=== PATIENT | male | born 1950 | race Caucasian/White ===

== ENCOUNTER → 2019-03-14 | Outpatient (CLI) | payer MEDICARE, OTHER ==
[~2019-03-14] MED LIST: ACET65TA OR; ASPI81TA83 OR; COUM1TAB17 OR; CYMB1CAP4 OR; GLUC500T3 OR; HYDR25TA6 OR; LOSARTAN PO; LOVAZA PO; MULTIVIT PO; OMEP20TA7 OR; PERC5TAB8 OR; PERC7.5T8 OR; VITACAP31 PO
[2019-03-14 15:26] LABS: BLOOD UREA NITROGEN 17 MG/DL (7-18); CALCIUM LEVEL 8.9 MG/DL (8.8-10.2); CARBON DIOXIDE LEVEL 28 MEQ/L (21-32); CHLORIDE LEVEL 102 MEQ/L (98-107); CREATININE FOR GFR 0.89 MG/DL (0.70-1.30); GLOMERULAR FILTRATION RATE > 60.0 (>42); GLUCOSE, FASTING 113 MG/DL (70-100); POTASSIUM SERUM 3.8 MEQ/L (3.5-5.1); SODIUM LEVEL 140 MEQ/L (136-145); TROPONIN I < 0.02 NG/ML (< 0.10)
== END ==
LOC: M LAB 14:20
PROVIDERS: ATTEND Internal Medicine Cardiovascular Disease
DX: R00.2 Palpitations (principal); R42 Dizziness and giddiness; I71.2 Thoracic aortic aneurysm, without rupture

== ENCOUNTER → 2019-03-14 | Outpatient (CLI) | payer MEDICARE, OTHER ==
[~2019-03-14] MED LIST changes: +ISOVUE-370 76% 100ML VIAL (Q9967) As Ordered ONE
--- NOTE | 2019-03-14 09:25 | REP ---
CT CHEST WITH IV CONTRAST: HISTORY: Thoracic aortic aneurysm. Comparison chest CT study, April 13, 2012. CT CONTRAST: 75 mL of intravenous Isovue 370. CT FINDINGS: The ascending thoracic aorta is dilated. Orthogonal anteroposterior measurement of the ascending aorta at the level of the right main pulmonary artery is unchanged at 4.87 cm today, previously 4.80 cm. Aortic lumen enhances homogeneously without evidence to suggest dissection. There is some vascular calcification in the transverse aorta and in the proximal subclavian artery on the right. The thoracic aorta is somewhat tortuous as before. There is left coronary artery vascular calcification as well. No pleural or pericardial effusion is seen. No hilar or mediastinal mass or adenopathy is observed. No adrenal lesion is seen. There is mild diffuse fatty infiltration of the liver. The previously noted 6 mm ill-defined nodule in the right upper lobe on the 2011 prior study is no longer apparent. There is a persistent pleural-based 5 mm nodule in the right lower lobe laterally. This is unchanged projecting on page 55 of 110 in series 201 of today's study. This is unchanged from 2012 and can be considered benign. No new pulmonary nodule is appreciated. No bony destructive lesion is seen. IMPRESSION: 4.87 cm ascending aortic aneurysm, essentially unchanged from study done April 13, 2012. Otherwise, no acute disease. Electronically Signed by Nikolay Lopez MD 03/14/2019 09:57 A
== END ==
LOC: M RAD 07:21
PROVIDERS: ATTEND Internal Medicine Cardiovascular Disease
DX: I71.2 Thoracic aortic aneurysm, without rupture (principal); R00.2 Palpitations; R42 Dizziness and giddiness
CPT/HCPCS: 36415; 71260; 80048; 84484; Q9967